=== PATIENT | male | born 2000 | race American Indian/Alaskan Native ===

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

== ENCOUNTER 2020-05-07 18:49 | Emergency (ER) | payer SELFPAY ==
[2020-05-07 19:45] VITALS: BP 122/71
== END 2020-05-08 02:39 | disposition left against medical advice (07) ==
LOC: ED 18:49
DX: R69 Illness, unspecified (principal); Z53.21 Procedure and treatment not carried out due to patient leaving prior to being seen by health care provider